=== PATIENT | male | born 1985 | race Two or more races ===

== ENCOUNTER 2017-02-24 12:22 | Emergency (ER) | payer MEDICAID ==
[~2017-02-24] VITALS: Ht 175.3 cm; Wt 72.6 kg
[2017-02-24] MEDS ORDERED: ITRACONAZOLE100 MG PO (12:58)
[2017-02-24] MEDS ORDERED: LAMISIL AT12 GM TP (12:58)
[2017-02-24 13:06] VITALS: BP 119/76
--- NOTE | 2017-02-26 14:08 | Emergency Room Report ---
History of Present Illness General Chief Complaint: Skin Rash/Abscess Source: Patient Present Illness HPI The patient is a 31-year-old male presenting for rash for the past 3 months. The patient states the rash began on the arm but has now progressed to include both arms, and legs. The patient thought this may be fungal and has used topical antifungal creams on a short-term basis but has not helped. It is described as itchy but does not hurt. He denies any other symptoms including nausea, vomiting, fever, chills Allergies: Coded Allergies: No Known Allergies (Unverified , 02/24/17) Patient History Past Medical History: see triage record Pertinent Family History: none Reviewed Nursing Documentation: PMH: Agreed, PSxH: Agreed Nursing Documentation-PMH Past Medical History: No Stated History Review of Systems All Other Systems: negative except mentioned in HPI Physical Exam Vital Signs Date Time Temp Pulse Resp B/P Pulse Ox O2 Delivery O2 Flow Rate FiO2 02/24/17 12:47 76 16 119/76 99 Room Air Sp02 EP Interpretation: reviewed, normal General Appearance: no apparent distress, alert, GCS 15, non-toxic Head: normocephalic, atraumatic Eyes: bilateral eye PERRL, bilateral eye normal inspection ENT: hearing grossly normal, normal pharynx, no angioedema, normal voice Neck: full range of motion, supple/symm/no masses Musculoskeletal: back normal, gait/station normal, normal range of motion, non- tender Neurologic: alert, oriented x3, responsive, motor strength/tone normal, sensory intact, speech normal Psychiatric: judgement/insight normal, memory normal, mood/affect normal, no suicidal/homicidal ideation Skin: normal turgor, rash - multiple circular lesions with raised borders. Erythematous and scaly. Locations include R arm, L arm, R hand, Bilat lower legs Lymphatic: no adenopathy Medical Decision Making PA Attestation Dr. Napoles is my supervising physician. Patient management was discussed with my supervising physician Diagnostic Impression: Primary Impression: Tinea corporis ER Course The patient is a 31-year-old male presenting for rash for the past 3 months. Ddx considered include but not limited to insect bite, contact dermatitis, eczema, cellulitis, tinea PE: vitals WNL. NAD multiple circular lesions with raised borders. Erythematous and scaly. Locations include R arm, L arm, R hand, Bilat lower legs Pt is given prescription for both topical and systemic antifungal. He will FU with PMD and dermatology if needed. ER precautions given Last Vital Signs Date Time Temp Pulse Resp B/P Pulse Ox O2 Delivery O2 Flow Rate FiO2 02/24/17 13:06 76 16 119/76 99 Room Air Status: improved Disposition: HOME, SELF-CARE Condition: Improved Scripts Terbinafine Hcl (LAMISIL AT) 12 Gm Gel..gram. 1 APPLIC TP BID, #12 GM Prov: DELANO HODGE.A. 02/24/17 Itraconazole (ITRACONAZOLE) 100 Mg Capsule 100 MG PO DAILY, #14 CAP Prov: DELANO HODGE.A. 02/24/17 Referrals: [facility],REFERRING (PCP) Patient Instructions: Body Ringworm Additional Instructions: I discussed my findings with the patient. All questions and concerns have been answered. Treatment and medication compliance have been addressed. I advised the patient that they need to follow up with PMD in 3-5 days. Return to ED if symptoms worsen, new symptoms arise, or if needed for any reason. Patient verbalized understanding of discharge instructions. DELANO HODGE February 26, 2017 14:08
== END 2017-02-24 13:10 | disposition home or self-care (01) ==
LOC: EMR 13:00
DX: B35.4 Tinea corporis (principal)
CPT/HCPCS: 99284

== ENCOUNTER 2017-03-07 22:44 | Emergency (ER) | payer MEDICAID ==
[~2017-03-07] VITALS: Ht 175.3 cm; Wt 72.6 kg
[~2017-03-07 22:44] MED LIST: ITRACONAZOLE100 MG PO; LAMISIL AT12 GM TP
[2017-03-07] MEDS ORDERED: PredniSONE 20mg tab ORAL ONE (23:15)
[2017-03-07] MEDS ORDERED: PREDNISONE20 MG ORAL (23:32)
[2017-03-07] MEDS ORDERED: HYDROCORTISONE30 G1 TP (23:32)
--- NOTE | 2017-03-07 23:33 | Emergency Room Report ---
History of Present Illness General Chief Complaint: Skin Rash/Abscess Source: Patient Present Illness HPI Is a 31-year-old male with no significant past medical history. He presents with worsening rash on his body. Has been ongoing for the last several months. He was seen here prescribed antifungal medication. He was switched to Diflucan. In the last 24 hours and got worse with increasing swelling and wheezing. No fever or chills. No nausea or vomiting. Unknown etiology. There is no family history of autoimmune disease I see no off. No pain. Allergies: Coded Allergies: No Known Allergies (Unverified , 02/24/17) Patient History Past Medical History: see triage record, old chart reviewed Past Surgical History: none Pertinent Family History: none Social History: Denies: smoking Immunizations: other Reviewed Nursing Documentation: PMH: Agreed, PSxH: Agreed Nursing Documentation-PMH Past Medical History: No Stated History Review of Systems Eye: Denies: blurred vision, eye pain ENT: Denies: ear pain, nose congestion, throat swelling Respiratory: Denies: cough, shortness of breath Cardiovascular: Denies: chest pain, palpitations Gastrointestinal: Denies: abdominal pain, diarrhea, nausea, vomiting Musculoskeletal: Denies: back pain, joint pain Skin: Reports: rash Neurological: Denies: headache, numbness Endocrine: Denies: increased thirst, increased urine Hematologic/Lymphatic: Denies: easy bruising All Other Systems: negative except mentioned in HPI Physical Exam Vital Signs Date Time Temp Pulse Resp B/P Pulse Ox O2 Delivery O2 Flow Rate FiO2 03/07/17 22:53 97.9 83 16 123/72 97 Room Air vitals normal Sp02 EP Interpretation: reviewed, normal General Appearance: well appearing, no apparent distress, alert Head: normocephalic, atraumatic Eyes: bilateral eye EOMI, bilateral eye PERRL ENT: hearing grossly normal, normal pharynx Neck: full range of motion, supple, no meningismus Respiratory: chest non-tender, lungs clear, normal breath sounds Cardiovascular #1: regular rate, rhythm, no murmur Gastrointestinal: normal bowel sounds, non tender, no mass, no organomegaly, no bruit, non-distended Musculoskeletal: back normal, gait/station normal, normal range of motion Neurologic: normal inspection, oriented x3 Psychiatric: mood/affect normal Skin: warm/dry, other - He has scatter psoriatic rash on mostly extremities. Worse over a flexion area. Some are wheezing. No evidence of any abscess. Does not appear to be fungal. Medical Decision Making Diagnostic Impression: Primary Impression: Psoriasiform dermatitis ER Course Patient presents with dermatitis most likely secondary to psoriasis. We'll put on steroid. No evidence of cellulitis. We'll discharge home. Last Vital Signs Date Time Temp Pulse Resp B/P Pulse Ox O2 Delivery O2 Flow Rate FiO2 03/07/17 22:53 97.9 83 16 123/72 97 Room Air Status: improved Disposition: HOME, SELF-CARE Condition: Stable Scripts Hydrocortisone Acetate 2.5% Oint (HYDROCORTISONE ACETATE 2.5% OINT) Y Oint 30 GM TP BID, #60 GM Prov: YAKELIN ROBERTS M.D. 03/07/17 Prednisone* (PREDNISONE*) 20 Mg Tablet 40 MG ORAL DAILY, #10 TAB Prov: YAKELIN ROBERTS M.D. 03/07/17 Additional Instructions: Followup with your DrRobyn within a week. You would need a referral to see a patternmaker. Return if worse. YAKELIN ROBERTS M.D. March 07, 2017 23:33
[2017-03-07 23:39] VITALS: BP 122/75
[2017-03-07 23:40] VITALS: BP 122/75
== END 2017-03-07 23:40 | disposition home or self-care (01) ==
LOC: EMR 23:35
DX: L30.8 Other specified dermatitis (principal)
CPT/HCPCS: 99284

== ENCOUNTER 2019-04-17 13:14 | Emergency (ER) | payer MEDICAID ==
[~2019-04-17] VITALS: Ht 172.7 cm; Wt 72.6 kg
[~2019-04-17 13:14] MED LIST changes: +CETAPHIL CREAM454 GM TP; +HYDROCORTISONE-30 GM TOPIC; +HYDROCORTISONE30 G1 TP; +PREDNISONE20 MG ORAL
--- NOTE | 2019-04-17 13:37 | Emergency Room Report ---
History of Present Illness General Chief Complaint: Upper Extremity Injury Source: Patient Present Illness HPI Patient is a 33-year-old male who presented after increased pain to the left upper extremity. Patient reports having a object in several 100 pounds fall onto his left hand. He reports having increased pain to the fourth and fifth finger. Patient reports being right-hand dominant. 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 He denies any other locations of pain. Pain is worse with movement. He reports having worsening pain with flexion of his hand. Injury occurred earlier in the day. Allergies: Coded Allergies: No Known Allergies (Unverified , 02/24/17) Patient History Past Medical History: see triage record Reviewed Nursing Documentation: PMH: Agreed; PSxH: Agreed Nursing Documentation-PMH Past Medical History: No Stated History Review of Systems All Other Systems: negative except mentioned in HPI Physical Exam Vital Signs Date Time Temp Pulse Resp B/P (MAP) Pulse Ox O2 Delivery O2 Flow Rate FiO2 04/17/19 13:18 16 General Appearance: well appearing, no apparent distress, alert, GCS 15 Head: normocephalic, atraumatic ENT: hearing grossly normal, normal voice Neck: full range of motion, supple Respiratory: no respiratory distress, speaking full sentences Cardiovascular #1: normal inspection Musculoskeletal: non-tender, decreased range of mation - left ring finger, swelling and bruising to left 4th MCP joint Neurologic: normal inspection, alert, oriented x3, responsive, normal gait Psychiatric: mood/affect normal Skin: rash - eczematous rash, other - bruising to left hand, some excoriation Medical Decision Making Diagnostic Impression: Primary Impression: Hand fracture, left ER Course Patient presented for injury to his hand. Differential diagnosis includes is not limited to fracture, contusion, dislocation among others. X-ray imaging of the left hand interpreted by me showed fracture to the proximal fourth phalanx near the MCP joint this is minimally displaced. Patient was placed in a ulnar gutter splint. Patient was neurovascularly intact after splinting. Patient was advised to follow-up with orthopedics or hand specialist due to the fracture. He was given prescription for pain medication. He was advised to keep his arm elevated as much as possible.Patient was advised that he would need to follow-up with his primary physician for orthopedic referral Last Vital Signs Date Time Temp Pulse Resp B/P (MAP) Pulse Ox O2 Delivery O2 Flow Rate FiO2 04/17/19 13:18 16 Status: improved Disposition: HOME, SELF-CARE Condition: Stable Scripts Hydrocodone Bit/Acetaminophen 5-325* (NORCO 5-325*) 1 Each Tablet 1 TAB ORAL Q6H PRN for For Pain, #30 TAB 0 Refills Prov: Catarino Cerna MD 04/17/19 Ibuprofen* (MOTRIN*) 600 Mg Tablet 600 MG ORAL Q8H PRN for For Pain, #30 TAB 0 Refills Prov: Catarino Cerna MD 04/17/19 Catarino Cerna MD Apr 17, 2019 13:37
[2019-04-17] MEDS ORDERED: Tetanus/Diptheria/Pertussis IM ONE (13:45)
--- NOTE | 2019-04-17 13:45 | NUR ---
ED Nurse Note: pt walked in to Ed due to left 4th and 5th digit finger injury. per pt, heavy objects fell on it couple hrs ago. swelling noted. limited ROM noted. AAO x4. respirations even and non-labored noted. will wait for the further order.
--- NOTE | 2019-04-17 13:47 | NUR ---
ED Nurse Note: pt refused TDap, pt reports he doesn't want to get it, pt advised the possible risks and complications, pt verbalized understanding.
[2019-04-17] MEDS ORDERED: NORCO 5-325 TA1 EACH ORAL (14:20)
[2019-04-17] MEDS ORDERED: IBUPROFEN600 MG ORAL (14:20)
[2019-04-17 14:58] VITALS: BP 127/80
--- NOTE | 2019-04-17 14:59 | NUR ---
ER DISCHARGE NOTE: Patient is cleared to be discharged per ERMD, pt is aox4, on room air, with stable vital signs. pt was given dc and prescription instructions, pt was able to verbalize understanding, pt id band removed. pt is able to ambulate with steady gait. pt took all belongings.
--- NOTE | 2019-04-18 10:38 | Diagnostic Imaging Report ---
Indication: Hand pain, trauma Technique: 3 views left hand Comparison: none Findings: There is a minimally displaced fracture of the posterior corner of the base of the fourth proximal phalanx. No other acute fractures. No dislocations. The joint spaces are preserved. Impression: Positive for fourth proximal phalangeal fracture This agrees with the preliminary interpretation reported by the emergency room physician in the electronic medical record
== END 2019-04-17 15:03 | disposition home or self-care (01) ==
LOC: EMR 15:00
DX: S62.615A Displaced fracture of proximal phalanx of left ring finger, initial encounter for closed fracture (principal); W20.8XXA Other cause of strike by thrown, projected or falling object, initial encounter; Y92.9 Unspecified place or not applicable
CPT/HCPCS: 29125; 99283